=== PATIENT | male | born 1950 | race Caucasian/White ===

== ENCOUNTER 2017-10-28 15:17 | Emergency (ER) | payer MEDICARE, OTHER ==
[~2017-10-28] VITALS: Ht 182.9 cm; Wt 87.1 kg
[~2017-10-28 15:17] MED LIST: ALLERGY4 MG PO; AMLODIPINE BESYL5 MG PO; ASPIRIN EC81 MG PO; CITALOPRAM HBR40 MG PO; CLOPIDOGREL75 MG PO; GLIPIZIDE5 MG PO; LIPITOR80 MG PO; LOSARTAN POTAS100 MG PO; METFORMIN HCL1000 MG PO; METOPROLOL TART50 MG PO; PRAVACHOL80 MG PO
== END 2017-10-28 15:45 | disposition short-term general hospital (02) ==
LOC: ED 15:17
DX: M25.572 Pain in left ankle and joints of left foot (principal); X58.XXXA Exposure to other specified factors, initial encounter; Y93.23 Activity, snow (alpine) (downhill) skiing, snowboarding, sledding, tobogganing and snow tubing

== ENCOUNTER 2024-06-25 10:25 | Day surgery (SDC) | payer OTHER ==
[2024-06-10 09:55] VITALS: BP 114/73
[~2024-06-25] VITALS: Ht 182.9 cm; Wt 86.4 kg
[~2024-06-25 10:25] MED LIST changes: +BRILINTA90 MG PO; +CARVEDILOL25 MG PO; +CEFAZOLIN SODIUM 2 GM/20 ML SYR IV SCH; +COZAAR50 MG PO; +FARXIGA5 MG PO; +IBLOOD GLUCOSE TEST STRIP 1 EA TEST VI PRN; +ISOSORBIDE DINI10 MG PO; +ISOSORBIDE MONO30 MG PO; +JARDIANCE10 MG PO; +LACTATED RINGER'S 1,000 ML IV SCH; +LANTUS SOL100 UNIT/1 SUB-Q; +LANTUS100 UNITS/ SUB-Q; +LIDOCAINE HCL 1% 5 ML SDV INJ ONE; +NITROGLYCERIN0.4 MG SL; +OMEPRAZOLE20 M2 PO; +STOOL SOFTENER240 MG PO; +VITAMIN D325 MC2 PO
[2024-06-25 10:35] VITALS: BP 171/74
[2024-06-25] MEDS ORDERED: propofoL 200 MG/20 ML VIAL ONE (11:53)
[2024-06-25] MEDS ORDERED: LIDOCAINE HCL 2% 5 ML SDV ONE (11:53)
--- NOTE | 2024-06-25 12:47 | NUR ---
06/25/24 1247 Mellissa Abraham 1230-PT ARRIVES TO PACU RESTING ON LT SIDE, PT NOT RESPONSIVE TO NOXIOUS STIMULI, VSS ON 6L VIA MASK, REU. 1240-PT AWAKENS ON OWN, TITRATED TO RA, VSS, REU. PT DENIES PAIN OR NAUSEA. PT ENCOURAGED TO PASS GAS. 1245- AT BEDSIDE TO DISCUSS PROCEDURE RESULTS AND PLAN OF CARE W/ PT, ALL QUESTIONS ANSWERED.
[2024-06-25 13:01] VITALS: BP 130/71
--- NOTE | 2024-06-25 14:02 | OR ---
[facility] [address] [place], [place] [address] Signed DATE OF OPERATION: 06/25/2024 SURGEON: Hero Holland MD PREOPERATIVE DIAGNOSES: 1. Personal history of adenomatous colonic polyp in 2013 at age 63. 2. Diverticulosis. 3. Rectal advancement of flap in 2015. POSTOPERATIVE DIAGNOSES: 1. A 4 mm polyp in the distal right colon (cauterized). 2. Biopsy, right colon for melanosis coli. 3. A 4 mm polyp at 70 cm in left colon. PROCEDURE: Colonoscopy with hot biopsy and cold biopsy. ESTIMATED BLOOD LOSS: None. INDICATIONS: Zacarias is a 73-year-old gentleman, asked to see me for a followup colonoscopy. He had a colonoscopy in 2013 at the age of 63. This was through his [facility] in [place], [place]. The notes indicate a tubular adenomatous polyp was removed. He was asked to follow up in 5 years. Apparently, he has diverticulosis as well. He also had a rectal mucosal advancement flap with Dr. Toledo for his [id number]. He said that worked out wonderful. There is no family history of colon cancer or polyps. He currently has no lower GI symptoms, although he is using docusate for constipation apparently. In the office, I had met with Zacarias and gave him a brochure on colonoscopy. We reviewed the nature of the test. There is risk including, but not limited to gas bloating, crampy abdominal pain, bleeding, perforation requiring surgery, and missed diagnosis. We also reviewed the written instructions for the bowel prep line by line. He also understands the need for monitored anesthesia care given his rather advanced medical history. He had expressed understanding and wished to proceed. PROCEDURE NOTE: Zacarias was taken into our endoscopy suite and placed in the left lateral decubitus position. He was given monitored anesthesia care with propofol infusion per our nurse emergency department. A digital rectal exam was performed. I could see his incision and drainage site out laterally to the anus from his previous fistula. He had good Electronically Signed By: HERO HOLLAND MD 06/25/24 1402 PATIENT NAME: ZACARIAS NAIK II OPERATIVE REPORT DATE OF : 46 REPORT #: [id number] PHYSICIAN: HERO HOLLAND MD PCP: ZACARIAS ARGUELLES MD REPORT IS CONFIDENTIAL AND NOT TO BE RELEASED WITHOUT AUTHORIZATION [facility] [address] [place], [place] [address] Signed sphincter tone. He had no masses. No external hemorrhoids. The adult colonoscope was introduced and advanced under direct visualization of camera into the cecum itself. His prep was moderately poor. In the future, he should increase his polyethylene glycol up to one full gallon. We could easily see the appendiceal orifice and ileocecal valve. The scope was then slowly withdrawn. 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 We went and took a biopsy out of the right colon in this regard. He also had a small somewhat indurated polyp in his distal right colon. We had trouble grasping that, so we simply just cauterized it completely. He had another 4 mm polyp back at 70 cm. It was easily removed in two bites with the help of hot biopsy forceps. We did not specifically see any diverticula, but then his prep was not the best. Once in the rectum, the scope had been retroflexed. We could not see any additional pathology above the anal canal. After this, the gas was suctioned out, the colonoscope removed. Zacarias tolerated the procedure quite well. RECOMMENDATIONS: I will see Zacarias back in my office in 7 to 14 days to review his results. He will need a full gallon of polyethylene glycol in the future. He will need monitored anesthesia care as always in the future. He should consider using Benefiber and MiraLAX for his constipation given the visual evidence of melanosis coli. Hero Holland MD ALB/MODL /[id number] cc: Patient Chart MD Zacarias Reyes MD Suwong Wongsuwan, MD Copies: HERO HOLLAND MD, ROBERT D DMD Electronically Signed By: HERO HOLLAND MD 06/25/24 1402 PATIENT NAME: ZACARIAS NAIK OPERATIVE REPORT DATE OF : 46 REPORT #: [id number] PHYSICIAN: HERO HOLLAND MD PCP: ZACARIAS ARGUELLES MD REPORT IS CONFIDENTIAL AND NOT TO BE RELEASED WITHOUT AUTHORIZATION [address] [address] Signed ANYI JEFF MD ~ Electronically Signed By: HERO HOLLAND MD 06/25/24 1402 PATIENT NAME: ZACARIAS NAIK II OPERATIVE REPORT DATE OF : 46 REPORT #: [id number] PHYSICIAN: HERO HOLLAND MD PCP: ZACARIAS ARGUELLES MD REPORT IS CONFIDENTIAL AND NOT TO BE RELEASED WITHOUT AUTHORIZATION
--- NOTE | 2024-06-27 12:13 | PATH ---
[facility] [address] [place], [place] [address] Signed SPECIMEN(S): A DISTAL RIGHT COLON BIOPSY SPECIMEN(S): B RIGHT COLON POLYP SPECIMEN SOURCE: A. DISTAL RIGHT COLON BIOPSY B. RIGHT COLON POLYP CLINICAL HISTORY: History of polyps, diverticulosis. Postop: Polyp x 1. Evaluate for melanosis coli FINAL PATHOLOGIC DIAGNOSIS: A. 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 B. Right colon polyp, biopsies: - Fragments of tubular adenoma. AMB MICROSCOPIC EXAMINATION: Histologic sections of all submitted blocks are examined by light microscopy. These findings, together with the gross examination, support the pathologic diagnosis. GROSS DESCRIPTION: A. The specimen, labeled and designated "Clabby, R, distal right colon biopsy evaluate for melanosis coli," is received in formalin and consists of one musa soft tissue fragment, 0.3 cm. Entirely submitted in (A1). B. The specimen, labeled and designated "Clabby, R, right colon polyp evaluate for melanosis coli," is received in formalin and consists of two musa soft tissue fragments, ranging from 0.2-0.3 cm. Entirely submitted in (B1). AB (under the direct supervision of a pathologist) The Gross Description was prepared using a voice recognition system. The report was reviewed for accuracy; however, sound-alike word errors, addition and/or deletions may occur. If there is any question about this report, please contact Client Services. ADDITIONAL NOTES: Immunohistochemical and/or in situ hybridization studies if performed in this case included appropriate positive controls that reacted as expected. This PATIENT NAME: ZACARIAS NAIK II PATHOLOGY DATE OF : 46 REPORT #: [id number] PHYSICIAN: BENJA LEIGH PCP: ZACARIAS ARGUELLES MD REPORT IS CONFIDENTIAL AND NOT TO BE RELEASED WITHOUT AUTHORIZATION [facility] [address] [place], [place] [address] Signed test was developed and its performance characteristics determined by [facility]. It has not been cleared or approved by the U.S. Food and Drug Administration. The FDA has determined that such clearance or approval is not necessary. This test is used for clinical purposes. It should not be regarded as investigational or for research. [facility] is certified under the Clinical Laboratory Improvement Amendments of 1988 (CLIA) as qualified to perform high complexity clinical laboratory testing. PERFORMING LABORATORY: Technical component was performed by [facility], [address] [place] [address] (CLIA# [id number]). Professional interpretation was performed by [facility] - [address] [id number] Diagnostician: Isabel Prasad MD Pathologist Electronically Signed 06/27/2024 Copies: ~ PATIENT NAME: ZACARIAS NAIK II PATHOLOGY DATE OF : 46 REPORT #: [id number] PHYSICIAN: BENJA PATHOLOGY PCP: ZACARIAS ARGUELLES MD REPORT IS CONFIDENTIAL AND NOT TO BE RELEASED WITHOUT AUTHORIZATION
== END 2024-06-25 13:16 | disposition home or self-care (01) ==
LOC: OPS 10:25 → DS 10:25 → OPS 11:45
PROVIDERS: ATTEND Colon & Rectal Surgery
PROC: 0DBF8ZX Excision of Right Large Intestine, Via Natural or Artificial Opening Endoscopic, Diagnostic (ICD-10-PCS; 2024-06-25)
PROC: 0DBG8ZX Excision of Left Large Intestine, Via Natural or Artificial Opening Endoscopic, Diagnostic (ICD-10-PCS; principal; 2024-06-25 11:45)
DX: Z12.11 Encounter for screening for malignant neoplasm of colon (principal); D12.2 Benign neoplasm of ascending colon; K63.89 Other specified diseases of intestine; I25.10 Atherosclerotic heart disease of native coronary artery without angina pectoris; I25.2 Old myocardial infarction; I12.9 Hypertensive chronic kidney disease with stage 1 through stage 4 chronic kidney disease, or unspecified chronic kidney disease; E11.22 Type 2 diabetes mellitus with diabetic chronic kidney disease; N18.32 Chronic kidney disease, stage 3b; E78.2 Mixed hyperlipidemia; Z86.0101 Personal history of adenomatous and serrated colon polyps; Z95.0 Presence of cardiac pacemaker; Z95.5 Presence of coronary angioplasty implant and graft; Z79.82 Long term (current) use of aspirin; Z79.4 Long term (current) use of insulin; Z79.899 Other long term (current) drug therapy; Z90.49 Acquired absence of other specified parts of digestive tract
CPT/HCPCS: 00811; J0690; J2003; J2704; J7121